=== PATIENT | female | born 1935 | race Caucasian/White ===

== ENCOUNTER 2017-06-17 18:24 | Emergency (ER) | payer MEDICARE ==
[~2017-06-17] VITALS: Ht 157.5 cm; Wt 77.5 kg
[~2017-06-17 18:24] MED LIST: ALEVE220 M1 PO; ARIMIDEX1 MG PO; LEVOTHYROXIN50 MC1 PO; LOVASTATIN40 MG PO; MAXZIDE-2537.5 MG/TA PO; MECLIZINE25 MG PO; PRAVASTATIN SOD40 MG PO
[2017-06-17 19:18] LABS: HEMATOCRIT 35.4 % (37.0-47.0); HEMOGLOBIN 12.1 g/dl (12.0-16.0); IMMATURE GRANULOCYTES 0.5 % (0.0-1.0); MEAN CELL VOLUME 89.6 fL CALC (80.0-100.0); MEAN CORPUSCULAR HGB 30.6 pG CALC (26.0-32.0); MEAN CORPUSCULAR HGB CONC 34.2 g/L CALC (32.0-36.0); NEUT# 12.98 thou/uL (2.00-7.15); RED BLOOD COUNT 3.95 mill/uL (4.20-5.60); RED CELL DISTRI WIDTH 14.5 % (11.5-15.5)
[2017-06-17 19:25] LABS: ALBUMIN 3.8 g/dL (3.2-5.0); BILIRUBIN, TOTAL 0.8 mg/dL (0.0-1.4); CALCIUM 9.2 mg/dL (8.4-10.2); CREATININE 2.1 mg/dL (0.5-1.0); POTASSIUM 3.8 mmol/l (3.5-5.1); TOTAL PROTEIN 7.2 g/dL (6.3-8.2)
[2017-06-17 19:39] LABS: INFLUENZA A NONE DETECTED (NONE DETECT); INFLUENZA B NONE DETECTED (NONE DETECT)
[2017-06-17 20:56] LABS: URINE BILIRUBIN - DIPSTICK NEGATIVE (NEGATIVE); URINE BLOOD DIPSTICK SMALL (NEGATIVE); URINE CLARITY CLOUDY; URINE COLOR YELLOW; URINE GLUCOSE - DIPSTICK NEGATIVE (NEGATIVE); URINE KETONE NEGATIVE (NEGATIVE); URINE PROTEIN - DIPSTICK 100 mg/dL (NEG-TRACE); URINE SPECIFIC GRAVITY 1.025; URINE UROBILINOGEN - DIPSTICK 0.2 E.U./dL (0.2)
[2017-06-17 20:57] LABS: URINE LEUK ESTERASE MODERATE (NEGATIVE); URINE NITRITE - DIPSTICK POSITIVE (Negative)
[2017-06-17 20:58] LABS: URINE BACTERIA FEW hpf; URINE SQUAMOUS EPITHELIAL CELL FEW EPI/hpf (0-FEW); URINE WBC >100 WBC/hpf (0-5)
[2017-06-17] MEDS ORDERED: Levaquin PO (21:11)
[2017-06-17 21:24] VITALS: BP 148/77
--- NOTE | 2017-06-19 13:17 | NUR ---
Review of urine culture from 06/17/17 final showed E. coli > 100,000 cfu/ml susceptible to Cipro, cefazolin, ceftazidime, ceftriaxone, gentamicin, nitrofurantoin, Zosyn, cefepime but resistant to Bactrim, ampicillin, ampicillin/sulbactam. Pt presented to ED on 06/17/17 with cc of fever. Clinical impression: UTI, leukocytosis, streptococcus pharyngitis, renal insufficiency. Pt received levofloxacin 500mg IV x 1 dose in ED. Pt was discharged with levofloxacin 500mg PO Q24H x 10 days. No changes in abx tx needed at this time.
== END 2017-06-17 21:34 | disposition home or self-care (01) ==
LOC: ED 18:24
PROVIDERS: Emergency Medicine
DX: N39.0 Urinary tract infection, site not specified (principal); J02.0 Streptococcal pharyngitis; D72.829 Elevated white blood cell count, unspecified; N28.9 Disorder of kidney and ureter, unspecified; I10 Essential (primary) hypertension; R11.0 Nausea; R50.9 Fever, unspecified; E05.90 Thyrotoxicosis, unspecified without thyrotoxic crisis or storm; B96.20 Unspecified Escherichia coli [E. coli] as the cause of diseases classified elsewhere

== ENCOUNTER 2021-10-27 20:31 | Emergency (ER) | payer OTHER, MEDICARE ==
[~2021-10-27] VITALS: Ht 157.5 cm; Wt 65.0 kg
[~2021-10-27 20:31] MED LIST changes: +Levaquin PO
[2021-10-27 21:10] LABS: HEMATOCRIT 35.1 % (37.0-47.0); HEMOGLOBIN 11.5 g/dl (12.0-16.0); IMMATURE GRANULOCYTES 0.4 % (0.0-5.0); MEAN CELL VOLUME 94.4 fL CALC (80.0-100.0); MEAN CORPUSCULAR HGB 30.9 pG CALC (26.0-32.0); MEAN CORPUSCULAR HGB CONC 32.8 g/dL CAL (32.0-36.0); NEUT# 9.2 thou/uL (2.00-7.15); RED BLOOD COUNT 3.72 mill/uL (4.20-5.60); RED CELL DISTRI WIDTH 14.1 % (11.5-15.5)
[2021-10-27 21:24] LABS: ALBUMIN 4.4 g/dL (3.2-5.0); BILIRUBIN, TOTAL 0.2 mg/dL (0.0-1.4); CREATININE 1.3 mg/dL (0.5-1.0); POTASSIUM 3.7 mmol/l (3.5-5.1); TOTAL PROTEIN 7.5 g/dL (6.3-8.2)
[2021-10-27 22:18] LABS: URINE BILIRUBIN - DIPSTICK NEGATIVE (NEGATIVE); URINE BLOOD DIPSTICK SMALL (NEGATIVE); URINE COLOR YELLOW; URINE GLUCOSE - DIPSTICK NEGATIVE (NEGATIVE); URINE KETONE NEGATIVE (NEGATIVE); URINE LEUK ESTERASE MODERATE (Negative); URINE NITRITE - DIPSTICK NEGATIVE (Negative); URINE PROTEIN - DIPSTICK NEGATIVE (NEG-TRACE); URINE UROBILINOGEN - DIPSTICK 0.2 E.U./dL (0.2)
[2021-10-27 22:20] LABS: URINE CLARITY SL CLOUDY
[2021-10-27 22:29] LABS: URINE RBC 0-2 RBC/hpf (0-5)
[2021-10-27 22:30] LABS: URINE SQUAMOUS EPITHELIAL CELL FEW EPI/hpf (0-FEW)
[2021-10-27 22:45] VITALS: BP 164/63
== END 2021-10-27 22:55 | disposition home or self-care (01) | DRG 552 ==
LOC: ED 20:31
PROVIDERS: Family Medicine
DX: S16.1XXA Strain of muscle, fascia and tendon at neck level, initial encounter (principal); S80.812A Abrasion, left lower leg, initial encounter; S20.214A Contusion of middle front wall of thorax, initial encounter; S80.12XA Contusion of left lower leg, initial encounter; V59.50XA Passenger in pick-up truck or van injured in collision with unspecified motor vehicles in traffic accident, initial encounter

== ENCOUNTER 2021-11-07 09:51 | Emergency (ER) | payer OTHER, MEDICARE ==
[2021-11-07] VITALS (13 sets, daily range): BP systolic 108–149; BP diastolic 36–58
[~2021-11-07] VITALS: Ht 157.5 cm; Wt 82.0 kg
[2021-11-07 11:06] LABS: IMMATURE GRANULOCYTES 0.7 % (0.0-5.0); MEAN CELL VOLUME 90.9 fL CALC (80.0-100.0); NEUT# 11.69 thou/uL (2.00-7.15); RED BLOOD COUNT 7.17 mill/uL (4.20-5.60); RED CELL DISTRI WIDTH 15.7 % (11.5-15.5)
[2021-11-07 11:18] LABS: ALBUMIN 4.3 g/dL (3.2-5.0); ALKALINE PHOSPHATASE 48 u/l (38-126); ANION GAP 17 (6-22 (CALC)); BUN 44 mg/dL (8-23); BUN/CREATININE RATIO 30 (12-20 (CALC)); CARBON DIOXIDE 27 mmol/l (22-30); CHLORIDE 95 mmol/l (95-108); CREATININE 1.4 mg/dL (0.5-1.0); GFR 36 ML/MIN (>=60 (CALC)); GFR FOR AFR.AMER. 43 ML/MIN (>=60 (CALC)); LIPASE 60 u/l (23-300); POTASSIUM 4.1 mmol/l (3.5-5.1); SGOT/AST 39 u/l (9-36); SODIUM 135 mmol/l (137-146); TOTAL PROTEIN 8.4 g/dL (6.3-8.2)
[2021-11-07 11:20] LABS: BILIRUBIN, TOTAL 0.8 mg/dL (0.0-1.4)
[2021-11-07 11:25] LABS: HEMOGLOBIN 21.5 g/dl (12.0-16.0)
[2021-11-07 11:29] LABS: HEMATOCRIT 65.2 % (37.0-47.0)
== END 2021-11-07 12:00 | disposition short-term general hospital (02) | DRG 176 ==
LOC: ED 09:51
PROVIDERS: Family Medicine
DX: I26.99 Other pulmonary embolism without acute cor pulmonale (principal); Z20.822 Contact with and (suspected) exposure to COVID-19
CPT/HCPCS: J1644; Q9967